=== PATIENT | male | born 1945 | race Caucasian/White ===

== ENCOUNTER 2016-07-24 10:10 | Day surgery (SDC) | payer MEDICARE, OTHER ==
--- NOTE | ~2016-07-24 | EGD ---
EGD REPORT [facility] [address] [address] NAME: SCARLETT VAZQUEZ : [birth year] STATUS : REG [facility] PAT#: [id number] AGE: 70 ADM/REG DATE : 07/24/16 MR#: [id number] REPORT SERV DATE: 07/24/16 DICTATED BY: MASON HUSTON DATE: 07/24/16 REPORT STATUS : Draft [facility] BY: [facility] DATE: 07/24/16 End[facility] Center Patient Name: Scarlett Vazquez Date of : 1945 Attending MD: MASON HUSTON MD Procedure Date No Time: 07/24/2016 Procedure: Upper GI endoscopy Indications: Dysphagia, Weight loss Referring MD: YUNIOR DUTTA MD Medicines: as per anesthesia Complications: No immediate complications. Procedure: After obtaining informed consent, the endoscope was passed under direct vision. Throughout the procedure, the patient's blood pressure, pulse, and oxygen saturations were monitored continuously. The GIF [id number] was introduced through the mouth, and advanced to the third part of duodenum. The upper GI endoscopy was accomplished without difficulty. The patient tolerated the procedure. Findings: The examined esophagus was normal. The scope was withdrawn. Dilation was performed with a Turner dilator with no resistance at 46 Fr. A single sessile polyp was found in the gastric body. Biopsies were taken with a cold forceps for histology. The cardia and gastric fundus were normal on retroflexion. The examined duodenum was normal. Impression: - Normal esophagus. Dilated. - A single gastric polyp. Biopsied. - Normal examined duodenum. Recommendation: - Await pathology results. Procedure Code(s): --- Professional --- 02745, Esophagogastroduodenoscopy, flexible, transoral; with biopsy, single or multiple 93151, Dilation of esophagus, by unguided sound or bougie, single or multiple passes Diagnosis Code(s): --- Professional --- K31.7, Polyp of stomach and duodenum R13.10, Dysphagia, unspecified R63.4, Abnormal weight loss EGD REPORT [facility] [address] [facility] [address] NAME: SCARLETT VAZQUEZ : [birth year] STATUS : REG [facility] PAT#: [id number] AGE: 70 ADM/REG DATE : 07/24/16 MR#: [id number] REPORT SERV DATE: 07/24/16 DICTATED BY: MASON HUSTON. DATE: 07/24/16 REPORT STATUS : Draft TRANSCRIBED BY: [employer] DATE: 07/24/16 CPT copyright 2013 [employer]. All rights reserved. The codes documented in this report are preliminary and upon data coder operator review may be revised to meet current compliance requirements. MASON HUSTON MD 07/24/2016 1:18 PM This report has been signed electronically. Number of Addenda: 0 Note Initiated On: 07/24/2016 12:58 PM Scope Withdrawal Time 0 hours 0 minutes 0 seconds [address] [place] [address]
[~2016-07-24 10:10] MED LIST: ASAB PO; COREG6 PO; DIABETA5 PO; GLUCPH PO; INVOKANA300 MG PO; LEVEMFLXPN SC; LOFIBRA200 MG PO; SPIRIVA INH; STIOLTO RESPIMAT4 GM INH; VITAMIN D1000 UNI1 PO; ZOCOR40 PO
== END 2016-07-24 23:59 | disposition home health service (06) ==
LOC: DMU 10:10
PROVIDERS: Internal Medicine Gastroenterology
PROC: 0D750ZZ Dilation of Esophagus, Open Approach (ICD-10-PCS; principal; 2016-07-24 11:30)
PROC: 0DB68ZX Excision of Stomach, Via Natural or Artificial Opening Endoscopic, Diagnostic (ICD-10-PCS; 2016-07-24 11:30)
DX: K29.70 Gastritis, unspecified, without bleeding (principal); I10 Essential (primary) hypertension; J44.9 Chronic obstructive pulmonary disease, unspecified; E78.00 Pure hypercholesterolemia, unspecified; M81.0 Age-related osteoporosis without current pathological fracture; M19.90 Unspecified osteoarthritis, unspecified site; E11.9 Type 2 diabetes mellitus without complications; Z79.82 Long term (current) use of aspirin; Z79.899 Other long term (current) drug therapy; Z87.891 Personal history of nicotine dependence; Z87.442 Personal history of urinary calculi; Z98.890 Other specified postprocedural states
CPT/HCPCS: 82962; 88305